=== PATIENT | male | born 1970 | race Hispanic/Latino ===

== ENCOUNTER 2021-02-26 15:26 | Emergency (ER) | payer OTHER ==
[~2021-02-26 15:26] MED LIST: Iopamidol-370 76% 500 ML 1 ML ONE
[2021-02-26] MEDS ORDERED: Acetaminophen 500 MG TAB ONE (17:28)
== END 2021-02-26 18:33 | disposition home or self-care (01) ==
LOC: ERS 15:26
DX: J01.00 Acute maxillary sinusitis, unspecified (principal); E11.9 Type 2 diabetes mellitus without complications; F17.210 Nicotine dependence, cigarettes, uncomplicated
CPT/HCPCS: 70450; 70498; Q9967

== ENCOUNTER 2025-03-12 22:21 | Inpatient (IN) | payer BC, OTHER, SELFPAY ==
[2025-03-12 22:50] LABS: #Basophils 0.08 10x3/uL (0.0-0.2); #Eosinophils 0.28 10x3/uL (0.0-0.7); #Monocytes 0.67 10x3/uL (0.11-0.59); #Neutrophils 4.76 10x3/uL (1.40-6.50); %Basophils 0.8 % (0.0-1.0); %Eosinophils 2.8 % (0.0-10.0); %Lymphocytes 41.5 % (21.0-51.0); %Monocytes 6.7 % (0.0-10.0); %Neutrophils 48.0 % (42.0-75.0); Hematocrit 43.1 % (42.0-52.0); Hemoglobin 14.1 g/dL (14.0-18.0); Mean Corpuscular Hemoglobin 32.3 pg (27.0-31.0); Mean Corpuscular Volume 98.9 fL (78.0-98.0); Platelet Count 225 10x3/uL (130-400); Red Blood Cell (RBC) Count 4.36 mill/uL (4.70-6.10); White Blood Cell (WBC) Count 9.94 10x3/uL (4.8-10.8)
[2025-03-12] MEDS ORDERED: Aspirin Chewable 81 MG TAB ONE (22:55)
[2025-03-12 23:04] LABS: INR-International Normal Ratio 1.0; PTT 25.9 sec (22.9-36.1); Prothrombin Time 12.8 sec (12.0-14.7)
[2025-03-12 23:07] LABS: ALT (SGPT) 8 U/L (Less than 45); AST (SGOT) 13 U/L (11-34); Albumin 4.4 g/dL (3.1-4.5); Alkaline Phosphatase 92 U/L (40-110); Anion Gap 16 mmol/L (10-20); BUN (Urea Nitrogen) 14 mg/dL (8.4-25.7); Bilirubin, Total 0.2 mg/dL (0.3-1.2); Calc. Creatinine Clearance 0 mL/min (70-130); Calcium 9.1 mg/dL (7.8-10.44); Carbon Dioxide 24 mmol/L (22-29); Chloride 104 mmol/L (98-107); Globulin 3.0 g/dL (2.4-3.5); Glucose 204 mg/dL (70-105); Potassium 3.9 mmol/L (3.5-5.1); Sodium 140 mmol/L (136-145)
[2025-03-13] MEDS ORDERED: hydrALAZINE 20 MG/ML VIAL SLOW IVP PRN (00:14)
[2025-03-13] MEDS ORDERED: Acetaminophen 325 MG TAB PO PRN (00:17)
[2025-03-13] MEDS ORDERED: Calcium Carbonate 500 MG ChewTAB PO PRN (00:17)
[2025-03-13] MEDS ORDERED: Senokot S 8.6-50 MG TAB PO PRN (00:17)
[2025-03-13] MEDS ORDERED: Ondansetron PF 4 MG/2 ML Vial IVP PRN (00:17)
[2025-03-13] MEDS ORDERED: Melatonin 3 MG TAB PO PRN (00:17)
[2025-03-13] MEDS ORDERED: Electrolyte Replacement Protocol 1 EACH FS PRN (00:30)
[2025-03-13] MEDS ORDERED: Dextrose 50% Abboject 50 ML SYRINGE SLOW IVP PRN (00:32)
[2025-03-13] MEDS ORDERED: Glucagon 1 MG/ML KIT IM PRN (00:32)
[2025-03-13 01:09] VITALS: BMI 25.7
[2025-03-13 07:24] LABS: #Basophils 0.06 10x3/uL (0.0-0.2); #Eosinophils 0.26 10x3/uL (0.0-0.7); #Monocytes 0.58 10x3/uL (0.11-0.59); #Neutrophils 4.48 10x3/uL (1.40-6.50); %Basophils 0.7 % (0.0-1.0); %Eosinophils 3.2 % (0.0-10.0); %Lymphocytes 33.5 % (21.0-51.0); %Monocytes 7.1 % (0.0-10.0); %Neutrophils 55.1 % (42.0-75.0); Hematocrit 38.7 % (42.0-52.0); Hemoglobin 12.5 g/dL (14.0-18.0); Mean Corpuscular Hemoglobin 32.2 pg (27.0-31.0); Mean Corpuscular Volume 99.7 fL (78.0-98.0); Platelet Count 208 10x3/uL (130-400); Red Blood Cell (RBC) Count 3.88 mill/uL (4.70-6.10); White Blood Cell (WBC) Count 8.14 10x3/uL (4.8-10.8)
[2025-03-13 07:44] LABS: ALT (SGPT) 7 U/L (Less than 45); AST (SGOT) 10 U/L (11-34); Albumin 3.8 g/dL (3.1-4.5); Alkaline Phosphatase 78 U/L (40-110); Anion Gap 12 mmol/L (10-20); BUN (Urea Nitrogen) 18 mg/dL (8.4-25.7); Bilirubin, Total 0.2 mg/dL (0.3-1.2); Calc. Creatinine Clearance 136 mL/min (70-130); Calcium 8.8 mg/dL (7.8-10.44); Carbon Dioxide 22 mmol/L (22-29); Cardiac Risk 2.8 (Less than 4.5); Chloride 109 mmol/L (98-107); Cholesterol 83 mg/dl (< 200 Desired); Globulin 2.5 g/dL (2.4-3.5); Glucose 211 mg/dL (70-105); HDL Cholesterol 30 mg/dL (>60 Neg Risk); LDL Cholesterol, Calculated 30 mg/dL; Potassium 4.0 mmol/L (3.5-5.1); Sodium 139 mmol/L (136-145); Triglycerides 115 mg/dL (Less than 150)
[2025-03-13] MEDS: Enoxaparin 40 MG (0.4 mL) SYRINGE SC SCH (08:34)
[2025-03-13] MEDS: Cyanocobalamin (Vitamin B-12) 1,000 MCG TAB PO SCH (20:36)
[2025-03-13] MEDS: Multivit, Therapeutic 1 TAB PO SCH (20:36)
[2025-03-13] MEDS: Insulin Glargine 30 UNITS/0.3 ML VIAL SC SCH (20:36)
[2025-03-13] MEDS: Folic Acid 1 MG TAB PO SCH (20:36)
[2025-03-13] MEDS: Rosuvastatin 10 MG TAB PO SCH (20:36)
[2025-03-14] MEDS ORDERED: PHENYLEPHRINE-NS 100 MCG/ML 10 ML SYRINGE ONE (06:49)
[2025-03-14] MEDS ORDERED: PROPOFOL 40 ML ONE (06:49)
[2025-03-14] MEDS ORDERED: Etomidate 40 MG (20 mL) VIAL ONE (06:49)
[2025-03-14] MEDS ORDERED: GLYCOPYRROLATE/PF 0.2 MG/ML VIAL ONE (06:49)
[2025-03-14] MEDS ORDERED: Lidocaine 1% (PF) 30 ML VIAL ONE (06:49)
[2025-03-14 11:15] VITALS: BP 155/75; TEMP 98
== END 2025-03-14 14:29 | disposition home or self-care (01) | DRG 65 ==
LOC: ERS 22:21 → OBS 23:41
PROVIDERS: ADMIT Internal Medicine; ATTEND Internal Medicine
PROC: B24BZZ4 Ultrasonography of Heart with Aorta, Transesophageal (ICD-10-PCS; principal; 2025-03-14)
PROC: 3E033XZ Introduction of Vasopressor into Peripheral Vein, Percutaneous Approach (ICD-10-PCS; 2025-03-14)
DX: I63.89 Other cerebral infarction (principal); G81.94 Hemiplegia, unspecified affecting left nondominant side; Q21.12 Patent foramen ovale; R47.01 Aphasia; R29.702 NIHSS score 2; R47.81 Slurred speech; E11.9 Type 2 diabetes mellitus without complications; M19.90 Unspecified osteoarthritis, unspecified site; F17.210 Nicotine dependence, cigarettes, uncomplicated; Z96.652 Presence of left artificial knee joint; I10 Essential (primary) hypertension; E78.5 Hyperlipidemia, unspecified; D53.9 Nutritional anemia, unspecified; I66.01 Occlusion and stenosis of right middle cerebral artery; I65.23 Occlusion and stenosis of bilateral carotid arteries; I36.1 Nonrheumatic tricuspid (valve) insufficiency; Z88.6 Allergy status to analgesic agent; Z79.84 Long term (current) use of oral hypoglycemic drugs; Z90.49 Acquired absence of other specified parts of digestive tract; Z98.890 Other specified postprocedural states; Z71.6 Tobacco abuse counseling; Z79.899 Other long term (current) drug therapy; Z82.49 Family history of ischemic heart disease and other diseases of the circulatory system; Z79.82 Long term (current) use of aspirin
CPT/HCPCS: 36415; 36416; 70450; 70496; 70498; 70551; 71045; 80053; 80061; 83036; 84443; 84484; 85025; 85610; 85730; 93005; 93306; 93312; J1650; J1815; J2704; J3490